=== PATIENT | male | born 2000 | race African-American/Black ===

== ENCOUNTER 2022-09-07 11:55 | Outpatient (CLI) | payer OTHER, SELFPAY ==
--- NOTE | ~2022-09-07 | US_ITS ---
EXAMINATION: US thyroid DATE: 09/07/2022 12:17 INDICATION: Nontoxic multinodular goiter. TECHNIQUE: Multiple ultrasound images of the thyroid were obtained. COMPARISON: None. FINDINGS: The right thyroid lobe measures 6.0 x 2.4 x 2.8 cm. The left thyroid lobe measures 4.7 x 1.0 x 2.0 c m. In the right thyroid lobe, there is a 2.5 cm mixed cystic and solid, isoechoic nodule with smooth margin, peripheral calcifications, and macrocalcifications (TI-RADS TR4). In the right thyroid lobe, there is a 3.0 cm mixed cystic and solid, isoechoic, wider than tall nodule with smooth margin witho ut echogenic foci (TR2). In the right thyroid lobe, there is a 13 mm solid, isoechoic, wider than brenton l nodule with ill-defined margin without echogenic foci (TR3). In the left thyroid lobe, there is a 1 0 mm mixed cystic and solid, isoechoic, wider than tall nodule with smooth margin without echogenic f oci (TR2). IMPRESSION: 1. Multinodular goiter. Ultrasound-guided fine-needle aspiration of the 2.5 cm right thyroid nodule i s recommended. Reviewed, dictated and finalized at location A. IMPRESSION: 1. Multinodular goiter. Ultrasound-guided fine-needle aspiration of the 2.5 cm right thyroid nodule is recommended.
== END 2022-09-07 11:56 ==
PROVIDERS: PCP Family Medicine; Visit Provider Family Medicine
DX: E04.2 Nontoxic multinodular goiter (principal)
CPT/HCPCS: 76536

== ENCOUNTER 2022-10-27 14:07 | Outpatient (CLI) | payer OTHER, SELFPAY ==
[2022-10-27 21:18] LABS: Thyroid Stimulating Hormone 0.587 uIU/mL (0.465-4.680)
[2022-10-27 22:16] LABS: Free T4 Free Thyroxine 1.36 ng/mL (0.78-2.19)
[2022-10-30 05:25] LABS: Thyroid Peroxidase Antibodies <1 IU/mL (<9)
[2022-10-30 18:53] LABS: Thyrotropin Receptor Antibody <1.00 IU/L (<=2.00)
[2022-11-01 15:07] LABS: Thyroid Stimulating Immunoglob <89 % baseline (<140)
== END 2022-10-27 14:08 | disposition home or self-care (01) ==
LOC: ANHWCLAB 14:07
PROVIDERS: PCP Family Medicine; Visit Provider Internal Medicine
DX: E04.9 Nontoxic goiter, unspecified (principal)
CPT/HCPCS: 36415; 83519; 84439; 84443; 84445; 86376

== ENCOUNTER 2022-11-19 10:19 | Outpatient (CLI) | payer OTHER, SELFPAY ==
--- NOTE | ~2022-11-19 | US_ITS ---
EXAMINATION: US FNA w image guidance DATE: 11/19/2022 11:27 INDICATION: Nontoxic multinodular goiter TECHNIQUE: A time-out was performed to verify the patient's name, date of , and procedure to be performed . The procedure and its benefits and risks were discussed with the patient. Risks specifically discus sed included bleeding and infection. The patient understood the risks and agreed to proceed. The neck was prepped and draped in the usual sterile manner. 3 mL 1% lidocaine was used for local anesthesia . 6 passes were made with a 25G needle into the lesion. Appropriate needle location was documented with continuous sonographic guidance. A sterile bandage was applied. There were no immediate compli cations. FINDINGS: Grayscale ultrasound images demonstrate biopsy needles advanced into the solid components of a 2.5 cm mixed solid and cystic TI RADS 4 nodule with coarse shadowing calcifications in the right thyroid lo be. IMPRESSION: 1. Successful ultrasound-guided fine needle aspiration of a 2.5 cm TI RADS 4 right thyroid nodule. Reviewed, dictated and finalized at location A. IMPRESSION: 1. Successful ultrasound-guided fine needle aspiration of a 2.5 cm TI RADS 4 r ight thyroid nodule.
== END 2022-11-19 10:20 | disposition home or self-care (01) ==
PROVIDERS: PCP Family Medicine; Visit Provider Internal Medicine
DX: E04.9 Nontoxic goiter, unspecified (principal)
CPT/HCPCS: 10005; 88173; 88305

== ENCOUNTER 2023-05-05 15:40 | Emergency (ER) | payer SELFPAY ==
[2023-05-05 15:50] VITALS: BP 134/75; PULSE 57; RESP 16; TEMP 36.2; O2SAT 100
== END 2023-05-05 15:50 | disposition left against medical advice (07) ==
PROVIDERS: PCP Family Medicine
DX: R51.9 Headache, unspecified (principal)
CPT/HCPCS: 99199